=== PATIENT | female | born 1965 | race Caucasian/White ===

== ENCOUNTER → 2021-01-16 | Outpatient (CLI) | payer OTHER | LOC: US 10:30 | DX: R11.0 Nausea (principal) | CPT/HCPCS: 76705 ==

== ENCOUNTER → 2021-03-01 | Day surgery (SDC) | payer OTHER ==
[~2021-03-01] MED LIST: CLONAZEPAM1 MG PO; MONTELUKAST SOD10 MG PO; OMEPRAZOLE20 MG PO; PAROXETINE HCL40 MG PO; VRAYLAR1.5 MG PO
== END | disposition home or self-care (01) ==
LOC: OR 06:43
DX: Z12.11 Encounter for screening for malignant neoplasm of colon (principal); D12.3 Benign neoplasm of transverse colon; K64.0 First degree hemorrhoids; K62.89 Other specified diseases of anus and rectum; K29.70 Gastritis, unspecified, without bleeding; B96.81 Helicobacter pylori [H. pylori] as the cause of diseases classified elsewhere; K21.9 Gastro-esophageal reflux disease without esophagitis; F41.9 Anxiety disorder, unspecified; F32.9 Major depressive disorder, single episode, unspecified; Z88.2 Allergy status to sulfonamides; Z88.8 Allergy status to other drugs, medicaments and biological substances; Z79.899 Other long term (current) drug therapy
CPT/HCPCS: J2704; J7040